=== PATIENT | male | born 1990 | race Caucasian/White ===

== ENCOUNTER 2020-05-19 12:06 | Outpatient (REF) | payer OTHER, SELFPAY ==
[2020-05-19 14:25] LABS: MANUAL DIFF FLAG NO
[2020-05-19 14:32] LABS: Basophils Percent Auto 0.6 % (0-2); Eosinophils Absolute Auto 0.1 X10*3/uL (0.0-0.4); Eosinophils Percent Auto 1.2 % (0-4); Hematocrit 45.9 % (42-52); Hemoglobin 15.2 g/dl (14.0-18.0); Imm Gran Abs Auto 0.01 X10*3/uL (0.00-0.03); Imm Gran Pct Auto 0.2 % (0.0-0.4); Lymphocytes Absolute Auto 1.6 X10*3/uL (1.2-4.9); Lymphocytes Percent Auto 33.2 % (20-40); Mean Corpuscular HGB Conc 33.1 g/dl (31.0-36.0); Mean Corpuscular Volume 93.5 fL (80-98); Mean Platelet Volume 11.1 fL (9.4-12.4); Monocytes Absolute Auto 0.5 X10*3/uL (0.1-1.2); Monocytes Percent Auto 10.2 % (2-11); Neutrophils Absolute Auto 2.7 X10*3/uL (2.0-8.3); Neutrophils Percent Auto 54.6 % (45-73); Platelet Count 236 X10*3/uL (160-400); Red Blood Count 4.91 X10*6/uL (4.60-5.80); Red Cell Distribution Width 12.1 % (11.0-16.0); White Blood Count 4.9 X10*3/uL (4.8-10.8)
[2020-05-19 15:18] LABS: Erythrocyte Sedimentation Rate 5 MM/HR (0-15)
[2020-05-19 16:03] LABS: Vitamin B12 537 pg/mL (200-900)
[2020-05-20 20:17] LABS: Lyme Abs Screen <0.90 index
== END 2020-05-19 12:07 | disposition home or self-care (01) ==
LOC: HO.HMGCLDS 12:06
PROVIDERS: PCP Nurse Practitioner Family; Visit Provider Nurse Practitioner Family
DX: Z20.828 Contact with and (suspected) exposure to other viral communicable diseases (principal); M25.50 Pain in unspecified joint; G51.0 Bell's palsy
CPT/HCPCS: 36415; 82607; 85025; 85652; 86618; 87635